=== PATIENT | male | born 1945 | race Caucasian/White ===

== ENCOUNTER → 2016-08-01 | Outpatient (CLI) | payer BC ==
[2016-08-01 19:04] LABS: Hemoglobin A1C 6.4 % (4.2-6.1)
== END | disposition home or self-care (01) ==
LOC: LABWHC1 12:51
PROVIDERS: ATTEND Internal Medicine
DX: E11.9 Type 2 diabetes mellitus without complications (principal)
CPT/HCPCS: 36415; 82947; 83036

== ENCOUNTER → 2016-10-03 | Outpatient (CLI) | payer BC ==
[2016-10-03 15:22] LABS: Aty Lym Flag Slight; HCT 46.5 % (39.0-53.0); HDW 2.15; HGB 15.2 gm/dL (13.0-17.5); MCH 32.8 pg (25.0-35.0); MCHC 32.7 g/dL (31.0-37.0); MCV 100.4 fL (80.0-100.0); Mean Platelet Volume 6.3; RBC 4.63 m/uL (4.30-5.90); RDW 12.6 % (11.5-15.5); WBC 6.5 k/uL (3.8-10.6); WBC (Perox) 6.71
[2016-10-03 15:40] LABS: ALT 47 U/L (21-72); AST 30 U/L (17-59); Alkaline Phosphatase 55 U/L (38-126); Anion Gap 7 mmol/L; Blood Urea Nitrogen 20 mg/dL (9-20); C Reactive Protein <5.0 mg/L (<10.0); Calcium 9.5 mg/dL (8.4-10.2); Carbon Dioxide 31 mmol/L (22-30); Chloride 104 mmol/L (98-107); Cholesterol 120 mg/dL (<200); Creatine Kinase 157 U/L (55-170); Glucose 126 mg/dL (74-99); HDL Cholesterol 48 mg/dL (40-60); Non-African American GFR(MDRD) >60 (>60 ml/min/1.73 sqM); Potassium 5.2 mmol/L (3.5-5.1); Sodium 142 mmol/L (137-145); Total Bilirubin 1.5 mg/dL (0.2-1.3); Total Protein 7.2 g/dL (6.3-8.2); Triglycerides 93 mg/dL (<150)
[2016-10-03 15:44] LABS: Add Differential Manual Differential
[2016-10-03 15:47] LABS: Nucleated Red Blood Cells 0 /100 WBC (0-0); Polychromasia Present; Total Cells Counted 100
[2016-10-03 16:06] LABS: Prostate Specific Antigen 1.39 ng/mL (0.00-4.00)
[2016-10-03 17:04] LABS: Erythrocyte Sedimentation Rate 2 mm/hr (0-15)
[2016-10-03 22:03] LABS: Hemoglobin A1C 6.4 % (4.2-6.1)
== END | disposition home or self-care (01) ==
LOC: LABWHC1 14:46
PROVIDERS: ATTEND Internal Medicine Interventional Cardiology
DX: Z00.00 Encounter for general adult medical examination without abnormal findings (principal); E11.9 Type 2 diabetes mellitus without complications; E78.2 Mixed hyperlipidemia; E78.5 Hyperlipidemia, unspecified
CPT/HCPCS: 36415; 80053; 80061; 82550; 83036; 84153; 85025; 85652; 86140

== ENCOUNTER → 2017-04-11 | Outpatient (CLI) | payer BC ==
[2017-04-11 11:11] LABS: Aty Lym Flag Slight; CH 32.9; CHCM 32.2; HCT 46.5 % (39.0-53.0); HDW 2.04; HGB 15.1 gm/dL (13.0-17.5); MCH 33.3 pg (25.0-35.0); MCHC 32.4 g/dL (31.0-37.0); MCV 102.5 fL (80.0-100.0); Macrocytosis Slight; Mean Platelet Volume 6.4; RBC 4.53 m/uL (4.30-5.90); RDW 12.4 % (11.5-15.5); WBC 5.6 k/uL (3.8-10.6)
[2017-04-11 11:31] LABS: Prostate Specific Antigen 2.48 ng/mL (0.00-4.00)
[2017-04-11 12:57] LABS: Hemoglobin A1C 6.5 % (4.2-6.1)
[2017-04-11 14:02] LABS: Add Differential Manual Differential
[2017-04-11 14:05] LABS: Nucleated Red Blood Cells 0 /100 WBC (0-0); Total Cells Counted 100
== END | disposition home or self-care (01) ==
LOC: LABWHC1 10:15
PROVIDERS: ATTEND Internal Medicine
DX: N40.0 Benign prostatic hyperplasia without lower urinary tract symptoms (principal); E11.9 Type 2 diabetes mellitus without complications; E78.5 Hyperlipidemia, unspecified; I10 Essential (primary) hypertension; E55.9 Vitamin D deficiency, unspecified; I25.10 Atherosclerotic heart disease of native coronary artery without angina pectoris; Z95.1 Presence of aortocoronary bypass graft
CPT/HCPCS: 36415; 82306; 82550; 82947; 83036; 84153; 85025

== ENCOUNTER → 2017-10-04 | Outpatient (CLI) | payer BC ==
[2017-10-04 14:59] LABS: HCT 45.4 % (39.0-53.0); HGB 15.8 gm/dL (13.0-17.5); MCH 33.4 pg (25.0-35.0); MCHC 34.8 g/dL (31.0-37.0); Mean Platelet Volume 6.6; Platelet Count 247 k/uL (150-450); RBC 4.73 m/uL (4.30-5.90); RDW 12.7 % (11.5-15.5); WBC 6.6 k/uL (3.8-10.6)
[2017-10-04 15:15] LABS: ALT 36 U/L (21-72); AST 28 U/L (17-59); Albumin 4.5 g/dL (3.5-5.0); Alkaline Phosphatase 56 U/L (38-126); Anion Gap 9 mmol/L; Blood Urea Nitrogen 23 mg/dL (9-20); C Reactive Protein <5.0 mg/L (<10.0); Calcium 9.7 mg/dL (8.4-10.2); Carbon Dioxide 31 mmol/L (22-30); Chloride 102 mmol/L (98-107); Cholesterol 136 mg/dL (<200); Creatine Kinase 96 U/L (55-170); Glucose 112 mg/dL (74-99); HDL Cholesterol 53 mg/dL (40-60); LDL Cholesterol,Calculated 68 mg/dL (0-99); Potassium 5.1 mmol/L (3.5-5.1); Sodium 142 mmol/L (137-145); Total Bilirubin 0.8 mg/dL (0.2-1.3); Total Protein 7.4 g/dL (6.3-8.2); Triglycerides 76 mg/dL (<150)
[2017-10-04 15:36] LABS: Band Neutrophils % 1 %; Basophils # (M) 0.07 k/uL (0-0.2); Eosinophils # (M) 0.13 k/uL (0-0.7); Lymphocytes # (M) 2.31 k/uL (1.0-4.8); Monocytes # (M) 0.33 k/uL (0-1.0); Neutrophils % (M) 56 %; Nucleated Red Blood Cells 0 /100 WBC (0-0); Total Cells Counted 100
[2017-10-04 15:37] LABS: Poikilocytosis (M) Present
[2017-10-04 16:47] LABS: Erythrocyte Sedimentation Rate 2 mm/hr (0-15)
[2017-10-04 21:18] LABS: Hemoglobin A1C 6.5 % (4.0-6.0)
== END | disposition home or self-care (01) ==
LOC: LABWHC1 14:29
PROVIDERS: ATTEND Internal Medicine
DX: Z00.00 Encounter for general adult medical examination without abnormal findings (principal); E78.2 Mixed hyperlipidemia; N40.0 Benign prostatic hyperplasia without lower urinary tract symptoms; E11.9 Type 2 diabetes mellitus without complications; I25.10 Atherosclerotic heart disease of native coronary artery without angina pectoris; Z95.1 Presence of aortocoronary bypass graft
CPT/HCPCS: 36415; 80053; 80061; 82550; 83036; 84153; 84443; 85025; 85652; 86140

== ENCOUNTER → 2018-04-21 | Outpatient (CLI) | payer MEDICARE, BC ==
[2018-04-21 11:59] LABS: ALT 39 U/L (21-72); AST 30 U/L (17-59); Cholesterol 176 mg/dL (<200); HDL Cholesterol 55 mg/dL (40-60); LDL Cholesterol,Calculated 102 mg/dL (0-99); Triglycerides 95 mg/dL (<150)
== END | disposition home or self-care (01) ==
LOC: LABWHC1 09:59
PROVIDERS: ATTEND Internal Medicine Interventional Cardiology
DX: E78.2 Mixed hyperlipidemia (principal)
CPT/HCPCS: 36415; 80061; 84450; 84460

== ENCOUNTER → 2018-11-04 | Outpatient (CLI) | payer MEDICARE, OTHER ==
[2018-11-04 20:32] LABS: ALT 32 U/L (10-49); AST 29 U/L (14-35); Albumin/Globulin Ratio 2.15 (1.60-3.17); Alkaline Phosphatase 61 U/L (41-126); Calcium 9.2 mg/dL (8.7-10.3); Carbon Dioxide 26.9 mmol/L (21.6-31.8); Chloride 105 mmol/L (96-109); Cholesterol 102 mg/dL (0-200); Glucose 111 mg/dL (70-110); Sodium 138 mmol/L (135-145); Total Bilirubin 1.3 mg/dL (0.3-1.2); Total Protein 6.3 g/dL (6.2-8.2); Triglycerides <50.0 mg/dL (0.0-149.0); VLDL Calculation 9.98 mg/dL (5.00-40.00)
== END | disposition home or self-care (01) ==
LOC: LABWHC1 13:01
PROVIDERS: ATTEND Internal Medicine Interventional Cardiology
DX: E78.2 Mixed hyperlipidemia (principal)
CPT/HCPCS: 36415; 80053; 80061

== ENCOUNTER → 2019-04-01 | Outpatient (CLI) | payer MEDICARE, OTHER ==
[2019-04-01 15:01] LABS: HCT 43.5 % (39.0-53.0); HGB 14.7 gm/dL (13.0-17.5); MCH 33.2 pg (25.0-35.0); MCHC 33.9 g/dL (31.0-37.0); Mean Platelet Volume 6.8; Platelet Count 216 k/uL (150-450); RBC 4.44 m/uL (4.30-5.90); RDW 14.3 % (11.5-15.5); WBC 5.6 k/uL (3.8-10.6)
[2019-04-01 15:44] LABS: Lymphocytes # (M) 1.06 k/uL (1.0-4.8); Neutrophils % (M) 72 %; Nucleated Red Blood Cells 0 /100 WBC (0-0); Total Cells Counted 100
[2019-04-01 19:13] LABS: ALT 36 U/L (10-49); AST 31 U/L (14-35); African American GFR (CKD) 76.2 (60.0-200.0); Alkaline Phosphatase 60 U/L (41-126); BUN/Creat Ratio 17.27 Ratio (12.00-20.00); C Reactive Protein <0.4 mg/dL (0.0-0.8); Calcium 9.2 mg/dL (8.7-10.3); Carbon Dioxide 27.4 mmol/L (21.6-31.8); Chloride 109 mmol/L (96-109); Chol/HDL Ratio 2.83; Cholesterol 116 mg/dL (0-200); Creatine Kinase 150 U/L (35-257); Globulin 2.1 g/dL (1.6-3.3); Glucose 117 mg/dL (70-110); LDL Cholesterol,Calculated 61.4 mg/dL (0.0-131.0); Potassium 4.8 mmol/L (3.5-5.5); Sodium 142 mmol/L (135-145); Total Bilirubin 1.5 mg/dL (0.3-1.2); Total Protein 6.5 g/dL (6.2-8.2)
[2019-04-01 20:03] LABS: Erythrocyte Sedimentation Rate 2 mm/hr (0-15)
[2019-04-01 23:31] LABS: Hemoglobin A1C 6.9 % (4.0-6.0)
== END | disposition home or self-care (01) ==
LOC: LABWHC1 12:57
PROVIDERS: ATTEND Internal Medicine Interventional Cardiology
DX: I25.810 Atherosclerosis of coronary artery bypass graft(s) without angina pectoris (principal); N40.0 Benign prostatic hyperplasia without lower urinary tract symptoms; E11.9 Type 2 diabetes mellitus without complications; I10 Essential (primary) hypertension; E55.9 Vitamin D deficiency, unspecified; E78.2 Mixed hyperlipidemia
CPT/HCPCS: 36415; 80053; 80061; 82550; 83036; 84153; 85025; 85652; 86140

== ENCOUNTER → 2021-03-03 | Outpatient (CLI) | payer MEDICARE, OTHER ==
[2021-03-04 13:40] LABS: African American GFR (CKD) 67.7 (60.0-200.0); Albumin 4.7 g/dL (3.80-4.90); Albumin/Globulin Ratio 1.96 (1.60-3.17); Anion Gap 10.3 mmol/L (4.00-12.00); BUN/Creat Ratio 15.83 Ratio (12.00-20.00); Calcium 9.6 mg/dL (8.7-10.3); Carbon Dioxide 24.7 mmol/L (21.6-31.8); Chol/HDL Ratio 3.18; Globulin 2.4 g/dL (1.6-3.3); LDL Cholesterol,Calculated 75.6 mg/dL (0.0-131.0); Non-African American GFR(CKD) 58.4 (60.0-200.0); Potassium 4.7 mmol/L (3.5-5.5); Total Protein 7.1 g/dL (6.2-8.2); VLDL Calculation 11.4 mg/dL (5.00-40.00)
== END | disposition home or self-care (01) ==
LOC: LABWHC1 14:49
PROVIDERS: ATTEND Internal Medicine Interventional Cardiology
DX: E78.2 Mixed hyperlipidemia (principal)
CPT/HCPCS: 36415; 80053; 80061

== ENCOUNTER → 2022-01-25 | Outpatient (CLI) | payer MEDICARE, OTHER ==
[2022-01-25 18:34] LABS: ALT 30 U/L (10-49); AST 24 U/L (14-35); Chol/HDL Ratio 3.59 Ratio; LDL Cholesterol,Calculated 88.8 mg/dL (0.0-131.0); VLDL Calculation 17.28 mg/dL (5.00-40.00)
== END | disposition home or self-care (01) ==
LOC: LABWHC1 10:31
PROVIDERS: ATTEND Nurse Practitioner Adult Health
DX: E78.2 Mixed hyperlipidemia (principal)
CPT/HCPCS: 36415; 80061; 84450; 84460

== ENCOUNTER → 2022-04-05 | Outpatient (CLI) | payer MEDICARE, OTHER ==
--- NOTE | 2022-04-05 22:38 | MR ---
EXAMINATION TYPE: MR knee RT wo con DATE OF EXAM: 04/05/2022 COMPARISON: Prior MRI right knee October 04, 2012. Outside right knee x-ray March 23, 2022 HISTORY: Right knee pain, history of surgery. TECHNIQUE: Multiplanar, multisequence imaging of the right knee is performed without IV contrast. FINDINGS: MEDIAL MENISCUS: Medial extrusion medial meniscus on coronal images Truncated appearance posterior ho rn at site of prior abnormal signal. Some fraying and increased signal remains present in the remnant posterior horn. Anterior horn is intact. LATERAL MENISCUS: Anterior and posterior horns are intact without tear. CRUCIATE LIGAMENTS: The anterior and posterior cruciate ligaments are intact and unremarkable. COLLATERAL LIGAMENTS: The medial collateral ligament and lateral collateral ligament complex are inta ct and unremarkable. EXTENSOR MECHANISM: Visualized quadriceps and patellar tendons are intact. EFFUSION: Small size suprapatellar joint effusion. POPLITEAL CYST: Tiny size popliteal/alvarado cyst. TRICOMPARTMENT SPACES: Moderate to severe narrowing patellofemoral and medial tibiofemoral compartmen ts. Mild tricompartment spurring. CARTILAGE: Chondromalacia patella with cartilaginous loss along the posterior patellar pole with area s of full-thickness loss noted. Significant cartilaginous loss medial tibiofemoral compartment with a reas of full-thickness loss noted. BONE MARROW SIGNAL: There is a heterogeneous diminished T1 and increased T2 signal involving the dist al medial femoral condyle and medial tibial plateau along with areas of involvement along the posteri or patellar pole. OTHER: No additional significant abnormality is appreciated. IMPRESSION: 1. Tricompartment degenerative changes are now fairly advanced at the patellofemoral and medial tibio femoral compartments as detailed above. Interval degenerative progression from 2013 study noted parti cularly medial tibiofemoral compartment. 2. Suspect interval partial medial meniscectomy surgery. Some intrasubstance tearing remnant posterio r horn thought present. 3. Small-sized suprapatellar joint effusion similar in size to prior. 4. Tiny popliteal cyst redemonstrated.
== END | disposition home or self-care (01) ==
LOC: RADMRIMAIN 16:51
PROVIDERS: ATTEND Orthopaedic Surgery
DX: M17.11 Unilateral primary osteoarthritis, right knee (principal); M71.21 Synovial cyst of popliteal space [Baker], right knee

== ENCOUNTER → 2022-05-02 | Outpatient (CLI) | payer MEDICARE, OTHER ==
[2022-05-02 09:16] LABS: Potassium 5.5 mmol/L (3.5-5.1)
[2022-05-02 09:18] LABS: HCT 47.3 % (39.0-53.0); HGB 15.4 gm/dL (13.0-17.5); MCH 32.2 pg (25.0-35.0); MCHC 32.5 g/dL (31.0-37.0); MCV 98.9 fL (80.0-100.0); Mean Platelet Volume 7.4; Platelet Count 262 k/uL (150-450); RBC 4.79 m/uL (4.30-5.90); RDW 12.3 % (11.5-15.5); WBC 7.5 k/uL (3.8-10.6)
[2022-05-02 09:54] LABS: Basophils # (M) 0.08 k/uL (0-0.2); Lymphocytes # (M) 2.55 k/uL (1.0-4.8); Neutrophils # (M) 3.98 k/uL (1.3-7.7); Neutrophils % (M) 53 %; Nucleated Red Blood Cells 0 /100 WBC (0-0); Total Cells Counted 100
[2022-05-02 09:55] LABS: RBC Morphology Normal
== END | disposition home or self-care (01) ==
LOC: LABPAT 08:43
PROVIDERS: ATTEND Orthopaedic Surgery
DX: Z01.812 Encounter for preprocedural laboratory examination (principal); M23.91 Unspecified internal derangement of right knee
CPT/HCPCS: 36415; 80051; 85025

== ENCOUNTER 2022-05-03 10:23 | Day surgery (SDC) | payer MEDICARE, OTHER ==
[2022-05-02 09:48] VITALS: BMI 26.9
--- NOTE | 2022-05-03 04:03 | HP ---
HISTORY AND PHYSICAL DATE OF SURGERY: 05/03/2022 HISTORY OF PRESENT ILLNESS: Morales Coffman is a 76-year-old gentleman seen with progressive right knee pain. We discussed options for treatment. He elected to proceed with right knee arthroscopy. Consent is obtained. PAST MEDICAL HISTORY: Fkl-fcpksft-uppwovhfl diabetes, hyperlipidemia. PAST SURGICAL HISTORY: Coronary bypass surgery and arthroscopy. DAILY MEDICATIONS: 1. Aspirin. 2. Metformin. 3. Aleve. ALLERGIES: None. SOCIAL HISTORY: Denies tobacco use. PHYSICAL EVALUATION OF THE RIGHT KNEE: Range of motion 0-130. There is a mild effusion. Tenderness medial joint line. Positive medial Chris's. Ligaments stable. Hip rotation without pain. Distal neurovascular exam intact. RADIOGRAPHS: Radiographs of the right knee revealed mild osteoarthritis and effusion. MRI right knee revealed medial meniscal tear, arthritis, and effusion. IMPRESSION: 1. Internal derangement of right knee with medial meniscal tear. 2. Hypertension. 3. Lln-jchirif-mcabhpqac diabetes. PLAN: Right knee arthroscopy with partial medial meniscectomy and debridement. MMODL / IJN: [id number] /
[~2022-05-03 10:23] MED LIST: DEXAMETHASONE SOD PHOSPHATE 4 MG/ML 1 ML VIAL IV ONE; HYDROmorphone 0.5 MG/0.5 ML SYRINGE IVP PRN; LACTATED RINGERS 1,000 ML IV SCH; LIDOCAINE 1% (10MG/ML) FOR IV START INTRADERMA PRN; MIDAZOLAM 2 MG/2 ML VIAL IV PRN; ONDANSETRON 4 MG/2 ML VIAL IVP ONE
[2022-05-03] MEDS ORDERED: BUPIVACAINE (PF) 0.25% 30 ML VIAL INTRAARTIC ONE ×2 (12:01→12:41)
[2022-05-03] MEDS ORDERED: fentaNYL (PF) 50 MCG/ML 2 ML AMP ONE (12:08)
[2022-05-03] MEDS ORDERED: PROPOFOL 10 MG/ML 20 ML VIAL IV ONE (12:08)
[2022-05-03] MEDS ORDERED: LIDOCAINE 2% INJ 20 MG/ML (2 ML VIAL) ONE (12:08)
[2022-05-03 12:54] VITALS: RESP 16; TEMP 97
[2022-05-03] MEDS ORDERED: LACTATED RINGERS 1,000 ML IV ONE ×2 (12:55→14:00)
--- NOTE | 2022-05-03 12:56 | P.OP ---
Date of Procedure: 05/03/22 Preoperative Diagnosis: Internal derangement right knee Postoperative Diagnosis: 1. Tear medial and lateral meniscus right knee 2. Grade 4 chondromalacia medial femoral condyle right knee 3. Reactive synovitis medial, lateral and suprapatellar compartments right knee Procedure(s) Performed: 1. Arthroscopic partial medial and lateral meniscectomy right knee 2. Arthroscopic microfracture medial femoral condyle right knee 3. Arthroscopic partial synovectomy medial, lateral and suprapatellar compartments right knee Anesthesia: ALENAA, local Surgeon: Forrest Howard Estimated Blood Loss (ml): 6 Pathology: none sent Condition: stable Disposition: PACU Indications for Procedure: 76-year-old patient seen with progressive right knee pain. After having treatment options discussed, he elected to proceed with arthroscopy. Operative Findings: See description of procedure Description of Procedure: Patient was taken to the operative suite. Patient underwent a general anesthetic by the department of anesthesia. Patient was given preoperative antibiotics. The right lower extremity was placed in a well-padded arthroscopic leg stock. The right leg was prepped and draped in the normal sterile orthopedic fashion. A lateral parapatellar and suprapatellar incision was made. Trochars were inserted. Arthroscopy was initiated. Suprapatellar pouch revealed diffuse thick reactive synovitis. The patellofemoral joint appeared to articulate congruently. There was grade 1/2 chondromalacia of the patellofemoral joint without significant osteochondral tears being present. The scope was guided into the medial gutter. No loose bodies or plica were identified. The scope was then guided into the medial compartment. A medial parapatellar incision was made. Trocar inserted followed by probe. There was a complex tear involving the posterior horn medial meniscus. There were grade 3/4 chondral malacia changes involving the medial femoral condyle with some osteochondral flap tears. There was some thick reactive some-itis anteriorly. I performed a partial medial meniscectomy getting down to stable meniscal tissue. I performed a chondroplasty of the medial femoral condyle getting down to stable osteochondral tissue. I performed a partial synovectomy decompressing the thick reactive synovitis. There was an area of exposed bone involving the medial femoral condyle. I introduced a microfracture awl and performed a microfracture to the medial femoral condyle penetrating the bone which resulted bleeding at the microfracture site. The residual meniscus was stable. The residual osteochondral surface was stable. There was good decompression of the synovitis. Scope and probe were then guided into the intercondylar notch. Cruciates were identified, probed and found to be stable. The scope and probe were then guided into lateral compartment. There was a radial tear mid body lateral meniscus. There was mild grade 1/2 chondromalacia of the lateral compartment without tears. There was some reactive synovitis anteriorly. I performed a partial lateral meniscectomy getting down to stable meniscal tissue. I performed a partial synovectomy compressing that reactive synovitis. The residual meniscus was stable. There was good decompression of synovitis. The scope was in guided back into the suprapatellar compartment. I introduced a motorized shaver into the suprapatellar compartment. I debrided some piecemeal fragments of meniscus that I encountered. I performed a partial synovectomy. Shaver was removed. The residual meniscus was stable. There was good decompression of the synovitis. I took one more look around the entire knee, no residual debris. Instruments were now removed from the joint. The joint was infiltrated with .25% Marcaine. Steri-Strips were applied to the portal sites. Sterile dressings were applied. The patient was placed into a MACI hose. No tourniquet was utilized. The patient was awakened, transferred to a bed and taken to recovery stable satisfactory condition.
[2022-05-03 14:22] VITALS: BP 130/75; PULSE 67
== END 2022-05-03 14:48 | disposition home or self-care (01) ==
LOC: OR 10:23
PROVIDERS: ATTEND Orthopaedic Surgery
DX: M23.300 Other meniscus derangements, unspecified lateral meniscus, right knee (principal); M94.261 Chondromalacia, right knee; M65.861 Other synovitis and tenosynovitis, right lower leg; M23.91 Unspecified internal derangement of right knee; E11.9 Type 2 diabetes mellitus without complications; E78.5 Hyperlipidemia, unspecified; Z95.1 Presence of aortocoronary bypass graft; Z79.84 Long term (current) use of oral hypoglycemic drugs; Z79.899 Other long term (current) drug therapy; Z98.890 Other specified postprocedural states
CPT/HCPCS: 29880; J1100; J0690; J2405; J3010; J2704; J2001

== ENCOUNTER → 2022-05-14 | Outpatient (CLI) | payer MEDICARE, OTHER ==
[2022-05-14 18:05] LABS: Basophils # (A) 0.02 X 10*3/uL (0.00-0.10); Basophils % (A) 0.3 %; Eosinophils # (A) 0.07 X 10*3/uL (0.04-0.35); HCT 48.5 % (39.6-50.0); HGB 15.7 g/dL (13.0-17.0); Immature Grans, Automated 0.3 %; Lymphocytes # (A) 1.93 X 10*3/uL (0.90-5.00); Lymphocytes % (A) 27.8 %; MCH 31.8 pg (27.0-32.0); MCHC 32.4 g/dL (32.0-37.0); MCV 98.4 fL (80.0-97.0); Mean Platelet Volume 9.2 fL (9.5-12.2); Monocytes # (A) 0.76 X 10*3/uL (0.20-1.00); NRBC Per 100 WBC 0 /100 WBCS (0.0-0.0); Neutrophils # (A) 4.13 X 10*3/uL (1.80-7.70); Neutrophils % (A) 59.6 %; Platelet Count 284 X 10*3/uL (140-440); RBC 4.93 X 10*6/uL (4.40-5.60); RDW 12.6 % (11.5-14.5); WBC 6.93 X 10*3/uL (4.50-10.00)
[2022-05-14 18:28] LABS: ALT 32 U/L (10-49); AST 24 U/L (14-35); Albumin 4.7 g/dL (3.8-4.9); Alkaline Phosphatase 70 U/L (41-126); BUN/Creat Ratio 16.67 Ratio (12.00-20.00); Blood Urea Nitrogen 17.5 mg/dL (9.0-27.0); C Reactive Protein <0.30 mg/dL (0.00-0.80); Calcium 9.4 mg/dL (8.7-10.3); Carbon Dioxide 26.4 mmol/L (20.0-27.5); Chloride 102 mmol/L (96-109); Chol/HDL Ratio 3.29 Ratio; Creatine Kinase 113 U/L (35-257); Globulin 2.5 g/dL (1.6-3.3); Glucose 138 mg/dL (70-110); LDL Cholesterol,Calculated 91.1 mg/dL (0.0-131.0); Non-African American GFR(CKD) 68.1 (60.0-200.0); Potassium 5.1 mmol/L (3.5-5.5); Sodium 138 mmol/L (135-145); Total Protein 7.1 g/dL (6.2-8.2); Uric Acid 5.4 mg/dL (3.7-8.7)
[2022-05-14 18:48] LABS: Erythrocyte Sedimentation Rate 5 mm/Hr (0-20)
[2022-05-14 23:17] LABS: Microalbumin Creatinine Ratio <30 mg/g Creat (0-30)
== END | disposition home or self-care (01) ==
LOC: LABWHC1 10:58
PROVIDERS: ATTEND Internal Medicine
DX: Z00.00 Encounter for general adult medical examination without abnormal findings (principal); D64.9 Anemia, unspecified; E11.65 Type 2 diabetes mellitus with hyperglycemia; E55.9 Vitamin D deficiency, unspecified; E78.2 Mixed hyperlipidemia; M10.9 Gout, unspecified; M81.0 Age-related osteoporosis without current pathological fracture
CPT/HCPCS: 36415; 80053; 80061; 82043; 82306; 82550; 82570; 83036; 84153; 84443; 84550; 85025; 85652; 86140

== ENCOUNTER → 2023-01-09 | Outpatient (CLI) | payer MEDICARE, OTHER ==
[2023-01-09 22:23] LABS: Microalbumin Creatinine Ratio <5 mg/g Cr (0-30)
[2023-01-10 02:30] LABS: Basophils # (A) 0.03 X 10*3/uL (0.00-0.10); Basophils % (A) 0.3 %; Eosinophils # (A) 0.08 X 10*3/uL (0.04-0.35); Eosinophils % (A) 0.8 %; HCT 44.9 % (39.6-50.0); Lymphocytes # (A) 2.08 X 10*3/uL (0.90-5.00); Lymphocytes % (A) 21.7 %; MCHC 33.4 d/dL (32.0-37.0); MCV 98.7 FL (80.0-97.0); Mean Platelet Volume 9.5 FL (9.5-12.2); Monocytes # (A) 0.98 X 10*3/uL (0.20-1.00); Monocytes % (A) 10.2 %; NRBC Per 100 WBC 0 X 10*3/uL (0.00-0.01); Neutrophils # (A) 6.37 X 10*3/uL (1.80-7.70); Neutrophils % (A) 66.7 %; Platelet Count 267 X 10*3/uL (140-440); RBC 4.55 X 10*6/uL (4.40-5.60); RDW 12.3 % (11.5-14.5); WBC 9.57 X 10*3/uL (4.50-10.00)
[2023-01-10 02:31] LABS: % Iron Saturation 43.06 (15.00-50.00); ALT 34 U/L (10-49); AST 29 U/L (14-35); Albumin 4.5 d/dL (3.8-4.9); Albumin/Globulin Ratio 1.88 Ratio (1.60-3.17); Alkaline Phosphatase 64 U/L (41-126); BUN/Creat Ratio 13.73 Ratio (12.00-20.00); Blood Urea Nitrogen 15.1 mg/dL (9.0-27.0); C Reactive Protein <0.30 mg/dL (0.00-0.80); Calcium 9.5 mg/dL (8.7-10.3); Carbon Dioxide 27.7 mmol/L (21.6-31.8); Chloride 103 mmol/L (96-109); Chol/HDL Ratio 3.13 Ratio; Creatine Kinase 251 U/L (35-257); Globulin 2.4 d/dL (1.6-3.3); Glucose 102 mg/dL (70-110); Iron 149 UG/DL (65-175); LDL Cholesterol,Calculated 67.8 mg/dL (0.0-131.0); Magnesium 2.1 mg/dL (1.5-2.4); Phosphorus 2.8 mg/dL (2.4-5.1); Potassium 4.5 mmol/L (3.5-5.5); Sodium 140 mmol/L (135-145); Total Bilirubin 1.3 mg/dL (0.3-1.2); Total Iron Binding Capacity 346 UG/DL (228-460); Total Protein 6.9 d/dL (6.2-8.2)
[2023-01-10 04:31] LABS: Erythrocyte Sedimentation Rate 3 mm/Hr (0-20)
== END | disposition home or self-care (01) ==
LOC: LABWHC1 14:57
PROVIDERS: ATTEND Internal Medicine
DX: Z00.00 Encounter for general adult medical examination without abnormal findings (principal); E11.22 Type 2 diabetes mellitus with diabetic chronic kidney disease; I12.9 Hypertensive chronic kidney disease with stage 1 through stage 4 chronic kidney disease, or unspecified chronic kidney disease; N18.30 Chronic kidney disease, stage 3 unspecified; D63.1 Anemia in chronic kidney disease; M10.9 Gout, unspecified; E78.5 Hyperlipidemia, unspecified; E11.65 Type 2 diabetes mellitus with hyperglycemia; E03.9 Hypothyroidism, unspecified; M19.90 Unspecified osteoarthritis, unspecified site; E55.9 Vitamin D deficiency, unspecified
CPT/HCPCS: 36415; 80053; 80061; 82043; 82306; 82550; 82570; 82728; 83036; 83540; 83550; 83735; 83970; 84100; 84153; 84443; 84550; 85025; 85652; 86140

== ENCOUNTER → 2023-01-28 | Outpatient (CLI) | payer MEDICARE, OTHER | END | disposition home or self-care (01) | LOC: LABWHC1 10:42 | PROVIDERS: ATTEND Internal Medicine | DX: E11.65 Type 2 diabetes mellitus with hyperglycemia (principal); E29.1 Testicular hypofunction; N52.9 Male erectile dysfunction, unspecified | CPT/HCPCS: 36415; 84402; 84403 ==

== ENCOUNTER → 2024-04-17 | Outpatient (CLI) | payer MEDICARE ==
[2024-04-17 10:43] LABS: Creatinine,Urine Random 31.4 mg/dL; Protein/Creatinine Ratio,Urine 0.35
[2024-04-17 15:35] LABS: Basophils # (A) 0.02 X 10*3/uL (0.00-0.10); Basophils % (A) 0.4 %; Eosinophils # (A) 0.02 X 10*3/uL (0.04-0.35); Eosinophils % (A) 0.4 %; HCT 43.3 % (39.6-50.0); HGB 14.4 g/dL (13.0-17.0); Lymphocytes # (A) 1.41 X 10*3/uL (0.90-5.00); Lymphocytes % (A) 29.9 %; MCH 32.8 pg (27.0-32.0); MCHC 33.3 g/dL (32.0-37.0); MCV 98.6 FL (80.0-97.0); Mean Platelet Volume 9.6 FL (9.5-12.2); Monocytes # (A) 0.63 X 10*3/uL (0.20-1.00); Monocytes % (A) 13.3 %; NRBC Per 100 WBC 0 X 10*3/uL (0.00-0.01); Neutrophils # (A) 2.63 X 10*3/uL (1.80-7.70); Neutrophils % (A) 55.8 %; Platelet Count 276 X 10*3/uL (140-440); RBC 4.39 X 10*6/uL (4.40-5.60); RDW 12.7 % (11.5-14.5); WBC 4.72 X 10*3/uL (4.50-10.00)
[2024-04-17 16:06] LABS: % Iron Saturation 25.46 (15.00-50.00); ALT 34 U/L (10-49); AST 39 U/L (14-35); Albumin 4.3 g/dL (3.8-4.9); Albumin/Globulin Ratio 1.72 Ratio (1.60-3.17); Alkaline Phosphatase 56 U/L (41-126); BUN/Creat Ratio 14.82 Ratio (12.00-20.00); Blood Urea Nitrogen 16.3 mg/dL (9.0-27.0); C Reactive Protein <0.30 mg/dL (0.00-0.80); Calcium 9.3 mg/dL (8.7-10.3); Carbon Dioxide 25.5 mmol/L (21.6-31.8); Chloride 103 mmol/L (96-109); Chol/HDL Ratio 2.43 Ratio; Creatine Kinase 461 U/L (35-257); Globulin 2.5 g/dL (1.6-3.3); Glucose 139 mg/dL (70-110); Iron 83 UG/DL (65-175); LDL Cholesterol,Calculated 65.3 mg/dL (0.0-131.0); Magnesium 2.2 mg/dL (1.5-2.4); Phosphorus 2.8 mg/dL (2.4-5.1); Potassium 4.9 mmol/L (3.5-5.5); Sodium 138 mmol/L (135-145); Total Bilirubin 1.3 mg/dL (0.3-1.2); Total Iron Binding Capacity 326 UG/DL (228-460); Total Protein 6.8 g/dL (6.2-8.2); Uric Acid 4.4 mg/dL (3.7-8.7); VLDL Calculation 10.64 mg/dL (5.00-40.00)
[2024-04-17 16:07] LABS: Prostate Specific Antigen 2.13 ng/mL (0.000-6.500)
[2024-04-17 16:21] LABS: Erythrocyte Sedimentation Rate <1 mm/Hr (0-20)
[2024-04-17 16:58] LABS: Hepatitis A Antibody IgM Nonreactive (Nonreactive); Hepatitis B Core IgM Nonreactive (Nonreactive); Hepatitis C IgG Antibody Nonreactive (Nonreactive)
[2024-04-17 17:19] LABS: Hepatitis B Surface Antigen Nonreactive (Nonreactive)
[2024-04-17 18:11] LABS: Microalbumin Creatinine Ratio <36 mg/g Cr (0-30); Urine Creatinine 33.3 mg/dL (39.0-259.0)
== END | disposition home or self-care (01) ==
LOC: LABWHC1 08:51
PROVIDERS: ATTEND Internal Medicine
DX: Z00.00 Encounter for general adult medical examination without abnormal findings (principal); E78.2 Mixed hyperlipidemia; I25.10 Atherosclerotic heart disease of native coronary artery without angina pectoris; Z95.1 Presence of aortocoronary bypass graft
CPT/HCPCS: 36415; 80053; 80061; 80074; 82043; 82306; 82550; 82570; 82728; 83036; 83540; 83550; 83735; 84100; 84153; 84156; 84443; 84550; 85025; 85652; 86140

== ENCOUNTER 2024-11-06 20:14 | Emergency (ER) | payer MEDICARE ==
[2024-11-06 20:28] VITALS: BP 164/75; RESP 18; TEMP 97.9
[2024-11-06 20:29] VITALS: PULSE 67
[2024-11-06 20:31] LABS: Glucose,Whole Blood 100 mg/dL (70-110)
--- NOTE | 2024-11-06 20:33 | ED ---
General Adult HPI - General Chief complaint: Trauma Stated complaint: Fall-Head Injury Time Seen by Provider: 11/06/24 20:22 Source: patient Mode of arrival: ambulatory Limitations: no limitations - History of Present Illness Initial comments: Dictation was produced using ITao dictation software. please excuse any grammatical, word or spelling errors. Chief Complaint: 79-year-old male presents to the ER for fall History of Present Illness: Patient is a 79-year-old male with no significant morbidities sta. Patient apparently was 15 feet in the air to work on his boat when he fell to the ground. He was confused after the fall. Patient complains of posterior head pain denies any neck pain or extremity pain. Patient does not take any anticoagulation medications. The ROS documented in this emergency department record has been reviewed and confirmed by me. Those systems with pertinent positive or negative responses have been documented in the HPI. All other systems are other negative and/or noncontributory. - Related Data Home Medications Medication Instructions Recorded Confirmed Aspirin [Adult Low Dose Aspirin EC] 81 mg PO DAILY 05/02/22 05/03/22 Atorvastatin Calcium [Lipitor] 80 mg PO DAILY 05/02/22 05/03/22 Ezetimibe [Zetia] 10 mg PO DAILY 05/02/22 05/03/22 metFORMIN HCL 500 mg PO AC-SUPPER 05/02/22 05/03/22 Previous Rx's Medication Instructions Recorded HYDROcodone/APAP 5-325MG [[place] 1 tab PO Q6HR PRN #12 tab 05/03/22 5-325] Allergies Allergy/AdvReac Type Severity Reaction Status Date / Time No Known Allergies Allergy Verified 05/03/22 10:56 Review of Systems ROS Statement: Those systems with pertinent positive or pertinent negative responses have been documented in the HPI. ROS Other: All systems not noted in ROS Statement are negative. Past Medical History Past Medical History: Diabetes Mellitus Additional Past Medical History / Comment(s): high cholestrol History of Any Multi-Drug Resistant Organisms: None Reported Past Surgical History: Orthopedic Surgery Additional Past Surgical History / Comment(s): open heart surgery Past Psychological History: No Psychological Hx Reported Smoking Status: Never smoker Past Alcohol Use History: None Reported Past Drug Use History: None Reported General Exam - General Exam Comments Initial Comments: PHYSICAL EXAM: General Impression: Alert and oriented x3, not in acute distress HEENT: 1 cm occipital scalp laceration extra-ocular movements intact, pupils equal and reactive to light bilaterally, mucous membranes moist. Cardiovascular: Heart regular rate and rhythm Chest: Able to complete full sentences, no retractions, no tachypnea Abdomen: abdomen soft, non-tender, non-distended, no organomegaly Musculoskeletal: Pulses present and equal in all extremities, no peripheral edema Motor: no focal deficits noted Neurological: CN II-XII grossly intact, no focal motor or sensory deficits noted Skin: Intact with no visualized rashes Psych: Normal affect and mood Limitations: no limitations Course Vital Signs 11/06/24 20:15 Temperature 97.9 F Pulse Rate 67 Respiratory 18 Rate Blood Pressure 164/75 O2 Sat by Pulse 100 Oximetry Procedures - Laceration Laceration #1 Consent Obtained: verbal consent Indication: laceration Site: scalp Description: linear Anesthetic Used: lidocaine 1%, with epi Anesthesia Technique: local infiltration Size of Sutures: other (2 leatha) Patient Tolerated Procedure: well Medical Decision Making - Medical Decision Making Was pt. sent in by a medical professional or institution (GIANNA Hamilton, FACE PAINTER, urgent care, hospital, or assisted...) When possible be specific @ -No Did you speak to anyone other than the patient for history (EMS, parent, family, police, friend...)? What history was obtained from this source @ -Family at the bedside Did you review nursing and triage notes (agree or disagree)? Why? @ -I reviewed and agree with nursing and triage notes Were old charts reviewed (outside hosp., previous admission, EMS record, old EKG, old radiological studies, urgent care reports/EKG's, assisted records)? Report findings @ -No old charts were reviewed Differential Diagnosis (chest pain, altered mental status, abdominal pain women, abdominal pain men, vaginal bleeding, musculoskeletal, weakness, fever, dyspnea, syncope, headache, dizziness, GI bleed, back pain, seizure, CVA, palpatations, mental health)? @ -Skull fracture, rib fracture, neck fracture EKG interpreted by me (3pts min.). @ -My EKG interpretation: Ventricular rate 69, sinus rhythm, AK 152, QRS 105, QTc 390. No AK prolongation, no QTC prolongation, no ST or T-wave changes noted. Overall, this EKG is unremarkable X-rays interpreted by me (1pt min.). @ -Chest and pelvis x-ray shows no acute processes CT interpreted by me (1pt min.). @ -None done U/S interpreted by me (1pt. min.). @ -None done What testing was considered but not performed or refused? (CT, X-rays, U/S, labs)? Why? @ -None What meds were considered but not given or refused? Why? @ -None Was smoking cessation discussed for >3mins.? @ -No Were there social determinants of health that impacted care today? How? (Homelessness, low income, unemployed, alcoholism, drug addiction, transportation, low edu. Level, literacy, decrease access to med. care, retirement, rehab)? @ -No Was there de-escalation of care discussed even if they declined (Discuss DNR or withdrawal of care, Hospice)? DNR status @ -No What co-morbidities impacted this encounter? (DM, HTN, Smoking, COPD, CAD, Cancer, CVA, ARF, Chemo, Hep., AIDS, mental health diagnosis, sleep apnea, morbid obesity)? @ -None Was patient admitted / discharged? Hospital course, mention meds given and route, prescriptions, significant lab abnormalities, going to OR and other pertinent info. @ -79-year-old male presents emergency department after fall from ladder approximately 15 feet. Vital signs stable. Patient no acute distress however showing signs of confusion with repetitive speech. Patient is GCS 14. EKG is unremarkable. Labs unremarkable. Imaging studies obtained. Plain films of the pelvis and chest are negative. CT scan of the head and C-spine obtained. He does have a small left frontal subdural hematoma. Case discussed with Dr. Black. Patient will be transferred to [facility] for [facility] care. CT chest abdomen pelvis shows no acute processes. Did you discuss the management of the patient with other professionals (professionals i.e. DrLalito, PA, FACE PAINTER, lab, RT, psych nurse, bilingual social worker, dice dealer, teacher, code enforcement officer, correctional casework specialist)? Give summary @ -See above Was critical care preformed (if so, how long)? @ -Yes, 33 minutes Undiagnosed new problem with uncertain prognosis? @ -No Drug Therapy requiring intensive monitoring for toxicity (Heparin, Nitro, Insulin, Cardizem)? @ -No Were any procedures done? @ -No Diagnosis/symptom? Acute, or Chronic, or Acute on Chronic? Uncomplicated (without systemic symptoms) or Complicated (systemic symptoms)? @ -Subdural hematoma Side effects of treatment? @ -No Exacerbation, Progression, or Severe Exacerbation? @ -No Poses a threat to life or bodily function? How? (Chest pain, [place], HI, pneumonia, PE, COPD, DKA, ARF, appy, cholecystitis, CVA, Diverticulitis, Homicidal, Suicidal, threat to staff... and all critical care pts) @ -yes - Lab Data Result diagrams: 11/06/24 20:11/06/24 20: Lab Results 11/06/24 11/06/24 11/06/24 Range/Units 20::: WBC 8.60 (4.50-10.00) 10*3/uL RBC 4.22 L (4.40-5.60) 10*6/uL Hgb 14.3 (13.0-17.0) g/dL Hct 40.8 (39.6-50.0) % MCV 96.7 (80.0-97.0) fL MCH 33.9 H (27.0-32.0) pg MCHC 35.0 (32.0-37.0) g/dL Plt Count 288 (140-440) 10*3/uL MPV 8.9 L (9.5-12.2) fL Immature Gran % (Auto) 0.2 % Neutrophils % 60.5 % Lymphocytes % 27.9 % Monocytes % 10.5 % Eosinophils % 0.6 % Basophils % 0.3 % Immature Gran # 0.02 (0.00-0.04) 10*3/uL Neutrophils # 5.20 (1.80-7.70) 10*3/uL Lymphocytes # 2.40 (0.90-5.00) 10*3/uL Monocytes # 0.90 (0.20-1.00) 10*3/uL Eosinophils # 0.05 (0.04-0.35) 10*3/uL Basophils # 0.03 (0.00-0.10) 10*3/uL PT 11.0 (10.0-12.5) sec INR 1.0 (<1.2) APTT 20.7 L (22.0-30.0) sec Sodium 139 (137-145) mmol/L Potassium 4.0 (3.5-5.1) mmol/L Chloride 103 (98-107) mmol/L Carbon Dioxide 27 (22-30) mmol/L Anion Gap 9 mmol/L BUN 22 H (9-20) mg/dL Creatinine 0.94 (0.66-1.25) mg/dL Est GFR (CKD-EPI)AfAm 89 (>60 ml/min/1.73 sqM) Est GFR (CKD-EPI)NonAf 77 (>60 ml/min/1.73 sqM) Glucose 105 H (74-99) mg/dL POC Glucose (mg/dL) (70-110) mg/dL POC Glu Fur Trimming Machine Operator ID Plasma Lactic Acid Brown (0.7-2.0) mmol/L Calcium 9.9 (8.4-10.2) mg/dL Total Bilirubin 2.0 H (0.2-1.3) mg/dL AST 38 (17-59) U/L ALT 27 (4-49) U/L Alkaline Phosphatase 59 (38-126) U/L Troponin I (0.000-0.034) ng/mL Total Protein 8.2 (6.3-8.2) g/dL Albumin 5.0 (3.5-5.0) g/dL Serum Alcohol <10 mg/dL Blood Type Blood Type Recheck Bld Type Recheck Status Antibody Screen Spec Expiration Date 11/06/24 11/06/24 11/06/24 Range/Units 20:25 20:25 20:25 WBC (4.50-10.00) 10*3/uL RBC (4.40-5.60) 10*6/uL Hgb (13.0-17.0) g/dL Hct (39.6-50.0) % MCV (80.0-97.0) fL MCH (27.0-32.0) pg MCHC (32.0-37.0) g/dL Plt Count (140-440) 10*3/uL MPV (9.5-12.2) fL Immature Gran % (Auto) % Neutrophils % % Lymphocytes % % Monocytes % % Eosinophils % % Basophils % % Immature Gran # (0.00-0.04) 10*3/uL Neutrophils # (1.80-7.70) 10*3/uL Lymphocytes # (0.90-5.00) 10*3/uL Monocytes # (0.20-1.00) 10*3/uL Eosinophils # (0.04-0.35) 10*3/uL Basophils # (0.00-0.10) 10*3/uL PT (10.0-12.5) sec INR (<1.2) APTT (22.0-30.0) sec Sodium (137-145) mmol/L Potassium (3.5-5.1) mmol/L Chloride (98-107) mmol/L Carbon Dioxide (22-30) mmol/L Anion Gap mmol/L BUN (9-20) mg/dL Creatinine (0.66-1.25) mg/dL Est GFR (CKD-EPI)AfAm (>60 ml/min/1.73 sqM) Est GFR (CKD-EPI)NonAf (>60 ml/min/1.73 sqM) Glucose (74-99) mg/dL POC Glucose (mg/dL) (70-110) mg/dL POC Glu Fur Trimming Machine Operator ID Plasma Lactic Acid Brown 0.9 (0.7-2.0) mmol/L Calcium (8.4-10.2) mg/dL Total Bilirubin (0.2-1.3) mg/dL AST (17-59) U/L ALT (4-49) U/L Alkaline Phosphatase (38-126) U/L Troponin I <0.012 (0.000-0.034) ng/mL Total Protein (6.3-8.2) g/dL Albumin (3.5-5.0) g/dL Serum Alcohol mg/dL Blood Type O Positive Blood Type Recheck O Pos Bld Type Recheck Status No Antibody Screen NEGATIVE Spec Expiration Date 11/09/2024 - 232411/06/24 Range/Units 20:30 WBC (4.50-10.00) 10*3/uL RBC (4.40-5.60) 10*6/uL Hgb (13.0-17.0) g/dL Hct (39.6-50.0) % MCV (80.0-97.0) fL MCH (27.0-32.0) pg MCHC (32.0-37.0) g/dL Plt Count (140-440) 10*3/uL MPV (9.5-12.2) fL Immature Gran % (Auto) % Neutrophils % % Lymphocytes % % Monocytes % % Eosinophils % % Basophils % % Immature Gran # (0.00-0.04) 10*3/uL Neutrophils # (1.80-7.70) 10*3/uL Lymphocytes # (0.90-5.00) 10*3/uL Monocytes # (0.20-1.00) 10*3/uL Eosinophils # (0.04-0.35) 10*3/uL Basophils # (0.00-0.10) 10*3/uL PT (10.0-12.5) sec INR (<1.2) APTT (22.0-30.0) sec Sodium (137-145) mmol/L Potassium (3.5-5.1) mmol/L Chloride (98-107) mmol/L Carbon Dioxide (22-30) mmol/L Anion Gap mmol/L BUN (9-20) mg/dL Creatinine (0.66-1.25) mg/dL Est GFR (CKD-EPI)AfAm (>60 ml/min/1.73 sqM) Est GFR (CKD-EPI)NonAf (>60 ml/min/1.73 sqM) Glucose (74-99) mg/dL POC Glucose (mg/dL) 100 (70-110) mg/dL POC Glu Fur Trimming Machine Operator ID [facility] Plasma Lactic Acid Brown (0.7-2.0) mmol/L Calcium (8.4-10.2) mg/dL Total Bilirubin (0.2-1.3) mg/dL AST (17-59) U/L ALT (4-49) U/L Alkaline Phosphatase (38-126) U/L Troponin I (0.000-0.034) ng/mL Total Protein (6.3-8.2) g/dL Albumin (3.5-5.0) g/dL Serum Alcohol mg/dL Blood Type Blood Type Recheck Bld Type Recheck Status Antibody Screen Spec Expiration Date Disposition Clinical Impression: Subdural hematoma Disposition: OTHER INSTITUTION NOT DEFINED Condition: Critical Referrals: Papo Silver MD [Primary Care Provider] - 1-2 days Time of Disposition: 21:33 - Out of Hospital Transfer - Req. Specs Out of Hospital Transfer - Requested Specifics: Other Emergency Center ([facility])
[2024-11-06 20:42] LABS: Basophils # (A) 0.03 10*3/uL (0.00-0.10); Basophils % (A) 0.3 %; Eosinophils # (A) 0.05 10*3/uL (0.04-0.35); Eosinophils % (A) 0.6 %; HCT 40.8 % (39.6-50.0); HGB 14.3 g/dL (13.0-17.0); Lymphocytes % (A) 27.9 %; MCH 33.9 pg (27.0-32.0); MCV 96.7 fL (80.0-97.0); Mean Platelet Volume 8.9 fL (9.5-12.2); Monocytes % (A) 10.5 %; Neutrophils % (A) 60.5 %; Platelet Count 288 10*3/uL (140-440); RBC 4.22 10*6/uL (4.40-5.60); RDW 12.1 % (11.5-14.5)
--- NOTE | 2024-11-06 20:44 | XR ---
EXAMINATION TYPE: XR pelvis AP view DATE OF EXAM: 11/06/2024 8:41 PM COMPARISON: None. CLINICAL INDICATION: Male, 79 years old with history of Trauma, pain TECHNIQUE: XR pelvis AP view views were obtained FINDINGS: No evidence for fracture, dislocation or bony lesion. Joint spaces are mildly narrowed. S I joints appear symmetric. IMPRESSION: No acute fracture or dislocation seen. [facility], , 11/06/2024 8:42 PM
--- NOTE | 2024-11-06 20:45 | XR ---
EXAMINATION TYPE: XR chest 1V portable DATE OF EXAM: 11/06/2024 8:41 PM COMPARISON: None. CLINICAL INDICATION: Male, 79 years old with history of trauma, TECHNIQUE: XR chest 1V portable views of the chest are obtained. FINDINGS: Demonstrated are scattered senescent parenchymal change. There is no evidence for focal infiltrate. The heart is stable. Hilar and mediastinal structures are within normal limits. Degenerative changes are seen of the dorsal spine. IMPRESSION: 1. Chronic changes without evidence for acute pulmonary disease. [facility], , 11/06/2024 8:42 PM
[2024-11-06 20:53] LABS: ALT 27 U/L (4-49); AST 38 U/L (17-59); African American GFR (CKD) 89 (>60 ml/min/1.73 sqM); Alcohol <10 mg/dL; Alkaline Phosphatase 59 U/L (38-126); Anion Gap 9 mmol/L; Blood Urea Nitrogen 22 mg/dL (9-20); Calcium 9.9 mg/dL (8.4-10.2); Carbon Dioxide 27 mmol/L (22-30); Chloride 103 mmol/L (98-107); Glucose 105 mg/dL (74-99); Non-African American GFR(CKD) 77 (>60 ml/min/1.73 sqM); Sodium 139 mmol/L (137-145); Total Protein 8.2 g/dL (6.3-8.2)
--- NOTE | 2024-11-06 21:09 | CT ---
EXAMINATION TYPE: CT brain pernell lyon DATE OF EXAM: 11/06/2024 COMPARISON: None the CLINICAL INDICATION: Male, 79 years old with history of trauma; [facility], Level 2 trauma per criteria. Pt fell from a boat onto gravel from 15 feet. pt is altered and confused. Pt declined collar in triage, no blood thinner +aspirin. TECHNIQUE: CT scan of the head and cervical spine are performed without contrast. CT DLP: [address] CTDI: mGy Automated exposure control for dose reduction was used. FINDINGS: Small left frontal parietal subdural hematoma measuring 1.9 mm in maximal thickness. There are couple of tiny foci of increased attenuation within the left frontal lobe may reflect small contusive or pe techial-type hemorrhage. Low attenuation parenchyma suggestive of underlying edema. The ventricles an d sulci are mildly enlarged. There is no evidence of midline shift. Small scalp hematoma right pariet al occipital region. The globes are intact and the visualized sinuses are clear. Cervical spine is visualized in its entirety from C1 through upper thoracic levels and demonstrates s atisfactory alignment without evidence of acute fracture or dislocation. Prevertebral soft tissue ap pears within normal limits. The C1-C2 articulation is unremarkable. IMPRESSION: 1. There is no acute fracture or dislocation evident in the cervical spine. 2. Small left frontal parietal subdural hematoma measuring 1.9 mm in maximal thickness. There are cou ple of tiny foci of increased attenuation within the left frontal lobe may reflect small contusive or petechial-type hemorrhage. Low attenuation parenchyma suggestive of underlying edema. [facility], , 11/06/2024 9:06 PM
[2024-11-06 21:12] LABS: Partial Thromboplastin Time 20.7 sec (22.0-30.0)
--- NOTE | 2024-11-06 21:18 | CT ---
EXAMINATION TYPE: CT ChestAbdPelvis w con DATE OF EXAM: 11/06/2024 9:01 PM COMPARISON: None. CLINICAL INDICATION: Male, 79 years old with history of trauma, Level 2 trauma per criteria. Pt fell from a boat onto gravel from 15 feet. pt is altered and confused. Pt declined collar in triage, no bl ood thinner +aspirin., TECHNIQUE: Axial imaging was performed with sagittal coronal reformats. 3D reconstruction performed o n a separate workstation. IV CONTRAST: with IV Contrast, patient injected with 100 ml mL of Isovue 300. (None if empty) CT DLP: 1570.2 mGycm, Automated exposure control for dose reduction was used. FINDINGS: CHEST LUNGS: There is no evidence for pneumothorax. The lungs are clear and free of focal contusion or ate lectasis. No pleural effusion . Scattered calcified pleural plaques. MEDIASTINUM: Thoracic aorta is of normal caliber without CT evidence to suggest traumatic induced ao rtic injury. No mediastinal fluid or blood. No pericardial fluid or cardia abnormality. HILAR STRUCTURES: No evidence for mass. No hilar adenopathy is appreciated. OTHER: No significant abnormality. OSSEOUS: No displaced osseous fractures identified. CT ABDOMEN AND PELVIS FINDINGS: LIVER/GB: No focal laceration, contusion or subcapsular hemorrhage. No space occupying hepatic lesi on. Biliary tree is of normal caliber. PANCREAS: No evidence for transection. No inflammation. No distinct mass. SPLEEN: No focal laceration, contusion or subcapsular hemorrhage. ADRENALS: No hemorrhage. No nodule. No thickening. KIDNEYS/BLADDER: No focal laceration, contusion or subcapsular hemorrhage. No hydronephrosis. No n ephrolithiasis. No disctinct renal mass. BOWEL: Bowel is intact. No evidence for pneumoperitoneum. GENITAL ORGANS: No gross abnormality. LYMPH NODES: No greater than 1cm abdominal or pelvic lymph nodes areappreciated. AORTA: No traumatic aortic injury visualized. OSSEOUS STRUCTURES: No displaced fracture seen. OTHER: No evidence for hemoperitoneum. IMPRESSION: 1. No evidence for traumatic injury to the chest. 2. No evidence for traumatic injury to the abdomen or pelvis. [facility], , 11/06/2024 9:16 PM
[2024-11-06] MEDS: LIDOCAINE 1%-EPI 1:100,000 20 ML VIAL SQ STA (21:40)
== END 2024-11-06 22:22 | disposition other institution (70) ==
LOC: EC 20:14
DX: S06.5XAA Traumatic subdural hemorrhage with loss of consciousness status unknown, initial encounter (principal); S01.01XA Laceration without foreign body of scalp, initial encounter; R40.2362 Coma scale, best motor response, obeys commands, at arrival to emergency department; R40.2142 Coma scale, eyes open, spontaneous, at arrival to emergency department; R40.2242 Coma scale, best verbal response, confused conversation, at arrival to emergency department; W11.XXXA Fall on and from ladder, initial encounter; Y92.814 Boat as the place of occurrence of the external cause
CPT/HCPCS: 12001; 99285; 36415; 93005; 86900; 86901; 80053; 83605; 84484; 85025; 85610; 85730; 86850; 72170; 71045; 72125; 70450; 71260; 74177; G0480; Q9967; 80320

== ENCOUNTER 2024-11-12 11:10 | Emergency (ER) | payer MEDICARE ==
[2024-11-12 11:25] VITALS: RESP 18; TEMP 97.9
--- NOTE | 2024-11-12 12:50 | ED ---
General Adult HPI - General Chief complaint: Back Pain/Injury Stated complaint: R side pain, staple removal Time Seen by Provider: 11/12/24 12:00 Source: patient, RN notes reviewed, old records reviewed Mode of arrival: ambulatory Limitations: no limitations - History of Present Illness Initial comments: Is an 79-year-old male who presents to the emergency department complaining of right-sided rib pain and the fact that he wants 2 leatha removed from the scalp. Patient fell about 15 feet patient states 7 days ago was seen in the emergency department transferred down [facility]. Patient comes in because continues to have right sided rib pain though it has not changed in over 4 days. Patient denies any difficulty breathing. Patient states he cannot get a deep breath. Patient states taking a deep breath increases the pain. Patient Nu[place] any fever chills or cough. Patient denies any abdominal pain. Patient states the pain in front radiates to the back a little. - Related Data Home Medications Medication Instructions Recorded Confirmed Aspirin [Adult Low Dose Aspirin EC] 81 mg PO DAILY 05/02/22 05/03/22 Atorvastatin Calcium [Lipitor] 80 mg PO DAILY 05/02/22 05/03/22 Ezetimibe [Zetia] 10 mg PO DAILY 05/02/22 05/03/22 metFORMIN HCL 500 mg PO AC-SUPPER 05/02/22 05/03/22 Previous Rx's Medication Instructions Recorded HYDROcodone/APAP 5-325MG [[place] 1 tab PO Q6HR PRN #12 tab 05/03/22 5-325] Allergies Allergy/AdvReac Type Severity Reaction Status Date / Time No Known Allergies Allergy Verified 11/12/24 11:25 Review of Systems ROS Statement: Those systems with pertinent positive or pertinent negative responses have been documented in the HPI. ROS Other: All systems not noted in ROS Statement are negative. Past Medical History Past Medical History: Diabetes Mellitus Additional Past Medical History / Comment(s): high cholestrol, brain bleed (some memory issues) History of Any Multi-Drug Resistant Organisms: None Reported Past Surgical History: Orthopedic Surgery Additional Past Surgical History / Comment(s): open heart surgery Past Psychological History: No Psychological Hx Reported Smoking Status: Never smoker Past Alcohol Use History: None Reported Past Drug Use History: None Reported General Exam - General Exam Comments Initial Comments: GENERAL: Patient is well-developed and well-nourished. Patient is nontoxic and well- hydrated and is in mild distress. ENT: Neck is soft and supple. No significant lymphadenopathy is noted. Oropharynx is clear. Moist mucous membranes. Neck has full range of motion without eliciting any pain. EYES: The sclera were anicteric and conjunctiva were pink and moist. Extraocular movements were intact and pupils were equal round and reactive to light. Eyelids were unremarkable. PULMONARY: Unlabored respirations. Good breath sounds bilaterally. No audible rales rhonchi or wheezing was noted. CARDIOVASCULAR: There is a regular rate and rhythm without any murmurs gallops or rubs. Patient has mild right-sided rib pain on palpation SKIN: Skin is clear with no lesions or rashes and otherwise unremarkable. NEUROLOGIC: Patient is alert and oriented x3. Cranial nerves II through XII are grossly intact. Motor and sensory are also intact. Normal speech, volume and content. Symmetrical smile. MUSCULOSKELETAL: Normal extremities with adequate strength and full range of motion. PSYCHIATRIC: Normal psychiatric evaluation. Limitations: no limitations Course Vital Signs 11/12/24 11:20 Temperature 97.9 F Pulse Rate 60 Respiratory 18 Rate Blood Pressure 133/69 O2 Sat by Pulse 100 Oximetry Medical Decision Making - Medical Decision Making Was pt. sent in by a medical professional or institution (, PA, MULTIMEDIA ENGINEER, urgent care, hospital, or penitentiary...) When possible be specific @ -No Did you speak to anyone other than the patient for history (EMS, parent, family, police, friend...)? What history was obtained from this source @ -No Did you review nursing and triage notes (agree or disagree)? Why? @ -I reviewed and agree with nursing and triage notes Were old charts reviewed (outside hosp., previous admission, EMS record, old EKG, old radiological studies, urgent care reports/EKG's, penitentiary records)? Report findings @ -No old charts were reviewed Differential Diagnosis? @ -Differential Chest Pain: Stable Angina, Unstable Angina, STEMI, NSTEMI Aortic Dissection, Pneumothorax, Musculoskeletal, Esophageal Spasm GERD, Cholecystitis, Pancreatitis, Zoster, this is not meant to be an all-inclusive list. EKG interpreted by me (3pts min.). @ -As above X-rays interpreted by me (1pt min.). @ -X-ray shows a left posterior rib fracture CT interpreted by me (1pt min.). @ -None done U/S interpreted by me (1pt. min.). @ -None done What testing was considered but not performed or refused? (CT, X-rays, U/S, labs)? Why? @ -None What meds were considered but not given or refused? Why? @ -None Did you discuss the management of the patient with other professionals (professionals i.e. DrLalito, PA, MULTIMEDIA ENGINEER, lab, RT, psych nurse, dialysis social worker, tablet coater, teacher, president and chief executive officer, geriatric case manager)? Give summary @ -No Was smoking cessation discussed for >3mins.? @ -No Was critical care preformed (if so, how long)? @ -No Were there social determinants of health that impacted care today? How? (Homelessness, low income, unemployed, alcoholism, drug addiction, transportation, low edu. Level, literacy, decrease access to med. care, [facility], rehab)? @ -No Was there de-escalation of care discussed even if they declined (Discuss DNR or withdrawal of care, Hospice)? DNR status @ -No What co-morbidities impacted this encounter? (DM, HTN, Smoking, COPD, CAD, Cancer, CVA, ARF, Chemo, Hep., AIDS, mental health diagnosis, sleep apnea, morbid obesity)? @ -None Was patient admitted / discharged? Hospital course, mention meds given and route, prescriptions, significant lab abnormalities, going to OR and other pertinent info. @ -Patient had 2 leatha removed from the scalp. Patient also had a rib fracture on his x-ray. Patient already has an incentive spirometer at home and is instructed to take Motrin. Undiagnosed new problem with uncertain prognosis? @ -No Drug Therapy requiring intensive monitoring for toxicity (Heparin, Nitro, Insulin, Cardizem)? @ -No Were any procedures done? @ -No Diagnosis/symptom? @ -Rib fracture right Acute, or Chronic, or Acute on Chronic? @ -Acute Uncomplicated (without systemic symptoms) or Complicated (systemic symptoms)? @ -Uncomplicated Side effects of treatment? @ -No Exacerbation, Progression, or Severe Exacerbation? @ -No Poses a threat to life or bodily function? How? (Chest pain, [place], VT, pneumonia, PE, COPD, DKA, ARF, appy, cholecystitis, CVA, Diverticulitis, Homicidal, Suicidal, threat to staff... and all critical care pts) @ -No Diagnosis/symptom? @ -Staple removal Acute, or Chronic, or Acute on Chronic? @ -Acute Uncomplicated (without systemic symptoms) or Complicated (systemic symptoms)? @ -Uncomplicated Side effects of treatment? @ -None Exacerbation, Progression, or Severe Exacerbation] @ -No Poses a threat to life or bodily function? @ -No Disposition Clinical Impression: Rib fracture, Removal of staple Disposition: HOME SELF-CARE Condition: Good Instructions (If sedation given, give patient instructions): Rib Fracture (ED) Is patient prescribed a controlled substance at d/c from ED?: No Referrals: Papo Silver MD [Primary Care Provider] - 1-2 days Time of Disposition: 13:22
--- NOTE | 2024-11-12 13:17 | XR ---
EXAMINATION TYPE: XR chest 2V DATE OF EXAM: 11/12/2024 12:58 PM COMPARISON: 11/06/2024 CLINICAL INDICATION: Male, 79 years old with history of Difficulty breathing , shortness of breath TECHNIQUE: PA and lateral views FINDINGS: The cardiomediastinal silhouette, aorta, and pulmonary vasculature are within normal limits. Mild int erstitial prominence shows some improvement. 1 cm nodule right midlung corresponds to calcified pleur al plaque when referring to the recent CT. Median sternotomy wires and post-CABG clips. IMPRESSION: Chronic changes. No acute process seen. [facility], Workstation: [id number], 11/12/2024 1:15 PM
[2024-11-12 13:35] VITALS: BP 123/77; PULSE 56
== END 2024-11-12 13:43 | disposition home or self-care (01) ==
LOC: EC 11:10
DX: S22.31XA Fracture of one rib, right side, initial encounter for closed fracture (principal); Z48.02 Encounter for removal of sutures; W17.89XA Other fall from one level to another, initial encounter
CPT/HCPCS: 71046; 99283

== ENCOUNTER → 2025-01-19 | Outpatient (CLI) | payer MEDICARE ==
[2025-01-19 19:53] LABS: ALT 32 U/L (10-49); AST 32 U/L (14-35); Albumin 4.0 g/dL (3.8-4.9); Albumin/Globulin Ratio 1.90 Ratio (1.60-3.17); Alkaline Phosphatase 61 U/L (41-126); Anion Gap 12.50 mmol/L (4.00-12.00); BUN/Creat Ratio 15.00 Ratio (12.00-20.00); Blood Urea Nitrogen 15.0 mg/dL (9.0-27.0); Calcium 8.7 mg/dL (8.7-10.3); Carbon Dioxide 24.5 mmol/L (21.6-31.8); Chloride 103 mmol/L (96-109); Cholesterol 121.00 mg/dL (0.00-200.00); Globulin 2.1 g/dL (1.6-3.3); Glucose 101 mg/dL (70-110); HDL Cholesterol 44.30 mg/dL (40.00-60.00); LDL Cholesterol,Calculated 63.7 mg/dL (0.0-131.0); Potassium 4.2 mmol/L (3.5-5.5); Sodium 140 mmol/L (135-145); Total Protein 6.1 g/dL (6.2-8.2); Triglycerides 65.10 mg/dL (0.00-149.00); VLDL Calculation 13.02 mg/dL (5.00-40.00)
== END | disposition home or self-care (01) ==
LOC: LABWHC1 13:19
PROVIDERS: ATTEND Internal Medicine Interventional Cardiology
DX: E78.2 Mixed hyperlipidemia (principal)
CPT/HCPCS: 36415; 80053; 80061